=== PATIENT | female | born 1995 | race Caucasian/White ===

== ENCOUNTER 2024-12-02 22:35 | Emergency (ER) | payer MEDICAID ==
[~2024-12-02] VITALS: Ht 185.4 cm; Wt 76.0 kg
[2024-12-02 22:44] VITALS: BP 136/83; PULSE 102; RESP 18; O2SAT 99
--- NOTE | 2024-12-02 23:39 | Physician Documentation ---
History of Present Illness ~ Chief Complaint: Bite-insect Stated Complaint: INFECTION Time Seen by MD: 23:17 Primary Medical Doctor: none HPI This 29-year-old female who presents with several sores to her face including a sore at the edge of her right nostril, patient additionally reports that she pulled a tick off of her two days ago, though the tick was not imbedded in her and had not bit her. Patient reports no other symptoms or concerns. Tetanus within 5 years?: No Medication Reconciliation Allergies: Coded Allergies: No Known Allergies (Unverified , 05/10/15) Past Medical History Past Medical History: No Pertinent History Past Surgical History: no surgical history Last Menstrual Period: November 29, 2024 Lives In: Home Review of Systems ROS Sores on face as stated above in the HPI, otherwise all systems are reviewed and negative. Physical Exam Vital Signs: Temperature: 98.2, Source: Oral, Heart Rate: 102, Respiratory Rate: 18, BP: 136/83, Pulse Oximetry: 99, Weight: 76.000 Physical Exam VITALS: Reviewed and as above. GENERAL: Alert, nontoxic appearing, no apparent distress. RESPIRATORY: No increased work of breathing, no respiratory distress, speaking in full clear sentences SKIN: Several punctate erythematous excoriated papules in various stages of hea ling without fluctuance or purulent discharge, single punctate pustule to the outside edge of right nostril with minimal surrounding erythema Progress Results/Orders Results/Orders Vital Signs 12/02/24 12/02/24 22:44 23:44 Temp 98.2 98.2 Pulse 102 Resp 18 B/P (MAP) 136/83 Pulse Ox 99 Medical Decision Making Findings This 29-year-old female presented with sores to her face including the outside of her right nostril, sores are consistent with multiple small uncomplicated furuncles, antibiotics not indicated, patient was provided with home care instructions and return to care precautions. Patient did report exposure to a tick though she reports it did not bite her and she brushed it off easily, the area where she discovered the tick had no injury or bite cha therefore that has no reason to suspect the patient was been by this tick and no need for prophylactic antibiotics. Remainder of physical exam was benign patient is appropriate for outpatient follow up. Differential Dx:Considerations: Include: Abrasion, Cellulitis, Insect envenomation, Laceration, Neurovascular injury, Punture wound, Urticaria Departure Time of Disposition: 23:33 Disposition: 01 HOME / SELF CARE / HOMELESS Impression: Primary Impression: Furuncle of face Condition: Improved Additional Instructions: The sores on your face and on your nose are pimples, please use warm compresses 2-3 times a day on these areas to help them drain, do not squeeze them. Wash your face with soap and water daily. You may use ibuprofen and or Tylenol as needed for pain according to [id number] packaging. Please follow up with your primary care provider in the next few days. Please return to the emergency department for any new or worsening concerning symptoms. Referrals: NO PRIMARY CARE PROVIDER (PCP) Education Educated: Patient Educated regarding: diagnosis, treatment, prognosis, need for follow up Signature Scribe Signature: No scribe Attestation: The note accurately reflects work and decisions made by me.OTTO Shine 12/03/24 00:29 JULIO PRADHAN December 02, 2024 23:39
[2024-12-02 23:44] VITALS: TEMP 98.2
== END 2024-12-02 23:49 | disposition home or self-care (01) ==
LOC: ER 22:35
DX: L02.02 Furuncle of face (principal)
CPT/HCPCS: 99282